=== PATIENT | male | born 1985 | race African-American/Black ===

== ENCOUNTER 2021-12-10 08:54 | Emergency (ER) | payer SELFPAY ==
[~2021-12-10] VITALS: Ht 188 cm; Wt 98.7 kg
[~2021-12-10 08:54] MED LIST: BENZ200C47 PO
[2021-12-10 08:59] VITALS: BP 145/86
--- NOTE | 2021-12-10 09:35 | PHYS DOC ---
Past Medical History Past Medical History: No Pertinent History Past Surgical History: No Surgical History Additional Past Surgical Histo: LEFT FOOT Smoking Status: Never Smoker Alcohol Use: None Drug Use: None General Adult EDM: Chief Complaint: MULTIPLE COMPLAINTS HPI: HPI: Patient is a 36-year-old male that presents today with headache and a bump on the sole of his right foot. Patient states that he has been having a headache on and off for 1 week he states it is mostly in the forehead area, he said that he has a history of migraines in the past and he said that usually if he eats or drinks a lot of fluid the headache will improve, he said that has not been the case with this headache, he states that he has taken Tylenol and/or ibuprofen as needed for pain and that has helped. Patient states he currently does not have a headache right now, he states that he is concerned that it could be related to his blood pressure since he has a family history of hypertension. Patient also states he has a bump on the bottom of his right foot, he says that it has been ongoing for 1 year, he denies any trauma, he says the only time he has pain is when he walks on it. Patient denies chest pain, shortness of breath, fever or chills, or strokelike symptoms. Review of Systems: Review of Systems: Constitutional: Denies fever or chills. [] Eyes: Denies change in visual acuity. [] HENT: Denies nasal congestion or sore throat. [] Respiratory: Denies cough or shortness of breath. [] Cardiovascular: Denies chest pain or edema. [] GI: Denies abdominal pain, nausea, vomiting, bloody stools or diarrhea. [] : Denies dysuria. [] Musculoskeletal: Denies back pain or joint pain. [] Integument: Bump on the sole of the right foot Neurologic: Headache denies focal weakness or sensory changes. [] Endocrine: Denies polyuria or polydipsia. [] Lymphatic: Denies swollen glands. [] Psychiatric: Denies depression or anxiety. [] Heart Score: C/O Chest Pain: No Risk Factors: Risk Factors: DM, Current or recent (<one month) smoker, HTN, HLP, family history of CAD, obesity. Risk Scores: Score 0 - 3: 2.5% MACE over next 6 weeks - Discharge Home Score 4 - 6: 20.3% MACE over next 6 weeks - Admit for Clinical Observation Score 7 - 10: 72.7% MACE over next 6 weeks - Early Invasive Strategies Allergies: Allergies: Allergies Coded Allergies Type Severity Reaction Last Updated Verified No Known Drug Allergies 12/10/21 No Physical Exam: PE: Constitutional: Well developed, well nourished, no acute distress, non-toxic appearance. [] HENT: Normocephalic, atraumatic, bilateral external ears normal, oropharynx moist, no oral exudates, nose normal. [] Eyes: PERRLA, EOMI, conjunctiva normal, no discharge. [] Neck: Normal range of motion, no tenderness, supple, no stridor. [] Cardiovascular:Heart rate regular rhythm, no murmur [] Lungs & Thorax: Bilateral breath sounds clear to auscultation [] Abdomen: Bowel sounds normal, soft, no tenderness, no masses, no pulsatile masses. [] Skin: 1 cm x 1 cm raised area noted on the right foot near the arch, no redness, no warmth, no drainage, noted patient denies pain with deep palpation of this area. Warm, dry, no erythema, no rash. [] Back: No tenderness, no CVA tenderness. [] Extremities: Right foot neurovascular intact distal to the concerned area on the bottom of the foot, dorsalis pedis pulse is 2+, and cap refill is less than 2 seconds Neurologic: Alert and oriented X 3, normal motor function, normal sensory function, no focal deficits noted. [] Psychologic: Affect normal, judgement normal, mood normal. [] Current Patient Data: Vital Signs: Vital Signs Date Time Temp Pulse Resp B/P (MAP) Pulse Ox O2 Delivery O2 Flow Rate FiO2 12/10/21 08:59 98.3 96 16 145/86 (105) 99 Room Air 98.3 EKG: EKG: [] Radiology/Procedures: Radiology/Procedures: [] Course & Med Decision Making: Course & Med Decision Making Pertinent Labs and Imaging studies reviewed. (See chart for details) Patient is in no acute distress during the medical examination, patient states he has no headache at this time, he said that the bump on the bottom of his foot has been ongoing for 1 year and he has never had it examined by his primary care physician. Patient's current blood pressure is 133/86, patient has no headache at this time. Patient will be referred back to his primary care physician or given a list of community resources that he can follow-up with for management of his hypertension and his other medical concerns. We will also give him the name of a legal officer for evaluation of his right foot bump. Patient verbalizes understanding of this and agreeable to the plan of care. Jorge Alberto Disclaimer: Jorge Alberto Disclaimer: This electronic medical record was generated, in whole or in part, using a voice recognition dictation system. Departure Departure Impression: Primary Impression: Foot pain, right Additional Impression: Headache Qualified Codes: R51.9 - Headache, unspecified Disposition: HOME / SELF CARE / HOMELESS Condition: STABLE Referrals: NO PCP (PCP) SONI DOCKERY DPM Patient Instructions: General Headache Without Cause Additional Instructions: Tylenol and/or ibuprofen as needed for headache Eat regular meals, and increase by mouth fluids Follow-up with your primary care physician or one of the listed clinics below for further management of your headaches and your concern with hypertension Follow-up with Dr. Dockery who is a legal officer and he will evaluate your bump on the bottom of your foot [facility] [address] [place] [address] [facility] [address] [place] [address] [facility] [address] [facility] [place] [address] [facility] [address] [place] [address] [facility] [address] [place] [address] [facility] [address] [place] [address] [facility] [address] [place] [address] [facility] [address] [place] [address] [facility] [address] [place] [address] [facility] [address] [place] [address] MIKE RAHMAN APRN Dec 10, 2021 09:34
== END 2021-12-10 09:53 | disposition home or self-care (01) ==
LOC: ER 08:54
DX: R51.9 Headache, unspecified (principal); M79.671 Pain in right foot
CPT/HCPCS: 99282